=== PATIENT | male | born 1975 | race Caucasian/White ===

== ENCOUNTER 2019-08-19 08:23 | Emergency (ER) | payer MEDICARE, MEDICAID ==
[~2019-08-19] VITALS: Ht 185 cm; Wt 70.0 kg
[2019-08-19] MEDS ORDERED: NS IV 1000 ML 1,000 ML IV STA (08:38)
--- NOTE | 2019-08-19 08:42 | ED General ---
General Stated Complaint: SYNCOPE Source of Information: Patient, Family History of Present Illness Date Seen by Provider: Aug 19, 2019 Time Seen by Provider: 08:23 Initial Comments 43 yo M presenting with complaint of 2 days of having increasing weakness and dizziness. He has had dark black tarry stools and noticed some blood in his mouth. 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 He took an extra dose of his factor VIII injection for the black tarry stool that he had yesterday and brought another dose with them to the ED this am. He has been feeling dizzy and light headed when he stands up. He feels like he has got has had left and is been able to sit down before he passes out. He has been feeling worse in the last 2 days and finally came in today. He feels like he may have a hernia or an area of bleeding in his esophagus or throat because of chronic issues with difficulty swallowing and tasting blood in the back of his mouth. The family member with him and checked his blood pressure and pulse and noted that when he stands he does have heart rate should've when he stands but his blood pressure had been maintaining. He follows up with hematology out of [facility] in [place] and for his HIV he sees a satellite clinic from Dr. Adrian from [place], [place] through [facility]. He is unsure what his hemoglobin runs for him. Allergies and Home Medications Allergies Coded Allergies: No Known Drug Allergies (Unverified , 08/19/19) Patient Home Medication List Home Medication List Reviewed: Yes Review of Systems Review of Systems Constitutional: No chills; dizziness (especially with standing and changing positions); No fever; malaise, weakness (general) EENTM: no symptoms reported Respiratory: no symptoms reported Cardiovascular: no symptoms reported Gastrointestinal: No abdominal pain, No constipation, No diarrhea, No nausea, No vomiting; other (black tarry stool x 1 yesterday) Genitourinary: no symptoms reported Musculoskeletal: no symptoms reported Skin: other (pale) Psychiatric/Neurological: Weakness (general and feels dizzy and like he might pass out when he stands and changes positions) Hematologic/Lymphatic: Easy Bleeding (due to hemophilia), Easy Bruising (due to hemophilia) Immunological/Allergic: HIV/AIDS Past Hghsrwa-Rotyns-Nzuvfu Hx Past Med/Social Hx: Reviewed Nursing Past Med/Soc Hx Patient Social History Recent Foreign Travel: Yes Past Medical History Surgeries: Yes Orthopedic (hand surgery as child) Respiratory: No Cardiac: No Neurological: No HIV/AIDS: Yes Genitourinary: No Gastrointestinal: No Musculoskeletal: No Endocrine: No HEENT: No Cancer: No Psychosocial: No Integumentary: No Blood Disorders: Yes (Hemophilia A) Physical Exam Vital Signs Vital Signs - First Documented 08/19/19 08:45 Temp 36.3 Pulse 110 Resp 20 B/P (MAP) 133/80 (97) Pulse Ox 100 O2 Delivery Room Air Capillary Refill : Height, Weight, BMI Height: '" Weight: lbs. oz. kg; BMI Method: General Appearance: WD/WN, Mild Distress HEENT: PERRL/EOMI, Other (some blood in his mouth) Neck: Full Range of Motion, Non Tender, Supple Respiratory: Chest Non Tender, Lungs Clear, Normal Breath Sounds, No Accessory Muscle Use, No Respiratory Distress Cardiovascular: Normal Peripheral Pulses, Tachycardia Gastrointestinal: Normal Bowel Sounds, No Pulsatile Mass, Non Tender, Soft Extremity: Normal Capillary Refill, Non Tender, No Calf Tenderness, No Pedal Edema Neurologic/Psychiatric: Alert, Oriented x3, No Motor/Sensory Deficits, strategy analyst II- XII Norm as Tested Skin: Warm/Dry, Pallor Progress/Results/Core Measures Suspected Sepsis SIRS Temperature: Pulse: Respiratory Rate: Laboratory Tests 08/19/19 08:32: White Blood Count 5.0 08/19/19 12:20: White Blood Count 4.8 Blood Pressure / Mean: Laboratory Tests 08/19/19 08:32: Creatinine 0.88, INR Comment 1.1, Platelet Count 142, Total Bilirubin 0.2 08/19/19 12:20: Platelet Count 72L Results/Orders Lab Results Laboratory Tests Test 08/19/19 08:32 08/19/19 12:10 08/19/19 12:20 Range/Units White Blood Count 5.0 4.8 4.3-11.0 10^3/uL Red Blood Count 2.08 L 2.16 L 4.35-5.85 10^6/uL Hemoglobin 6.4 *L 6.7 *L 13.3-17.7 G/DL Hematocrit 19 *L 20 *L 40-54 % Mean Corpuscular Volume 91 90 80-99 FL Mean Corpuscular Hemoglobin 31 31 25-34 PG Mean Corpuscular Hemoglobin Concent 34 34 32-36 G/DL Red Cell Distribution Width 15.1 H 14.7 H 10.0-14.5 % Platelet Count 142 72 L 130-400 10^3/uL Mean Platelet Volume 11.0 H 12.1 H 7.4-10.4 FL Neutrophils (%) (Auto) 46 42-75 % Lymphocytes (%) (Auto) 38 12-44 % Monocytes (%) (Auto) 13 H 0-12 % Eosinophils (%) (Auto) 3 0-10 % Basophils (%) (Auto) 0 0-10 % Neutrophils # (Auto) 2.3 1.8-7.8 X 10^3 Lymphocytes # (Auto) 1.9 1.0-4.0 X 10^3 Monocytes # (Auto) 0.6 0.0-1.0 X 10^3 Eosinophils # (Auto) 0.2 0.0-0.3 10^3/uL Basophils # (Auto) 0.0 0.0-0.1 10^3/uL Prothrombin Time 14.4 12.2-14.7 SEC INR Comment 1.1 0.8-1.4 Activated Partial Thromboplast Time 38 H 24-35 SEC Sodium Level 142 135-145 MMOL/L Potassium Level 3.6 3.6-5.0 MMOL/L Chloride Level 109 H 98-107 MMOL/L Carbon Dioxide Level 21 21-32 MMOL/L Anion Gap 12 5-14 MMOL/L Blood Urea Nitrogen 34 H 7-18 MG/DL Creatinine 0.88 0.60-1.30 MG/DL Estimat Glomerular Filtration Rate > 60 BUN/Creatinine Ratio 39 Glucose Level 106 H 70-105 MG/DL Calcium Level 7.8 L 8.5-10.1 MG/DL Corrected Calcium 8.4 L 8.5-10.1 MG/DL Total Bilirubin 0.2 0.1-1.0 MG/DL Aspartate Amino Transf (AST/SGOT) 30 5-34 U/L Alanine Aminotransferase (ALT/SGPT) 48 0-55 U/L Alkaline Phosphatase 29 L 40-136 U/L Total Protein 5.3 L 6.4-8.2 GM/DL Albumin 3.2 3.2-4.5 GM/DL Lipase 36 8-78 U/L Urine Color YELLOW Urine Clarity CLEAR Urine pH 7.0 5-9 Urine Specific [place] 1.015 L 1.016-1.022 Urine Protein NEGATIVE NEGATIVE Urine Glucose (UA) NEGATIVE NEGATIVE Urine Ketones NEGATIVE NEGATIVE Urine Nitrite NEGATIVE NEGATIVE Urine Bilirubin NEGATIVE NEGATIVE Urine Urobilinogen 0.2 < = 1.0 MG/DL Urine Leukocyte Esterase NEGATIVE NEGATIVE Urine RBC (Auto) NEGATIVE NEGATIVE Urine RBC NONE /HPF Urine WBC RARE /HPF Urine Squamous Epithelial Cells RARE /HPF Urine Crystals NONE /LPF Urine Bacteria NEGATIVE /HPF Urine Casts NONE /LPF Urine Mucus NEGATIVE /LPF Urine Culture Indicated NO My Orders Orders - SHANTA ENRIQUEZ MD Comprehensive Metabolic Panel (08/19/19 08:38) Lipase (08/19/19 08:38) Ua Culture If Indicated (08/19/19 08:38) Ed Iv/Invasive Line Start (08/19/19 08:38) Cbc With Automated Diff (08/19/19 08:38) Protime With Inr (08/19/19 08:38) Partial Thromboplastin Time (08/19/19 08:38) Ns Iv 1000 Ml (Sodium Chloride 0.9%) (08/19/19 08:38) Ekg Tracing (08/19/19 08:38) Continuous Ekg Monitoring (08/19/19 08:38) Type And Screen (08/19/19 10:12) Red Cells Leukocytes Reduced (08/19/19 10:12) Blood Trans|Repeat Hgb After U (08/19/19 10:33) Ns Iv 1000 Ml (Sodium Chloride 0.9%) (08/19/19 11:30) Blood Trans|Repeat Hgb After U (08/19/19 12:11) Cbc No Diff (08/19/19 12:56) Red Cells Leukocytes Reduced (08/19/19 10:20) Red Cells Leukocytes Reduced (08/19/19 13:59) Ns (Ivpb) (Sodium C... W/Pantoprazole In (08/19/19 14:01) Red Cells Leukocytes Reduced (08/19/19 14:34) Vital Signs/I&O 08/19/19 08/19/19 08/19/19 08/19/19 08:45 10:27 14:15 14:54 Temp 36.3 36.6 36.2 36.2 36.4 36.5 36.8 Pulse 110 102 90 93 Resp 20 18 B/P (MAP) 133/80 (97) 125/82 Pulse Ox 100 99 O2 Delivery Room Air Capillary Refill : Progress Note #1: Progress Note obtain basic labs and coags, ECG. Given 1 L NS bolus as well as Protonix 40 mg IV for presumed GI bleed based on dark tarry stools and his hemophilia hx. Progress Note #2: Progress Note Labs are back and show that patient is anemic with Hgb down to 6.4. He remains hemodynamically stable currently but will require a transfer to a hospital with a higher level of care that will have access to blood for transfusion as well as hematology and GI since he has hemophilia and black tarry stool. He requests [facility] since that is where his specialists are located. at 928 am I called and left a voice mail for Martina Maurice about trying to transfer the patient. I called back immediately and they tried to transfer me to the DSO and it rang mulitple times then the phone just disconnected. I again called back and they had me hold the line while they tried to page Martina Maurice but she did not answer the page. They then transferred me to the phone for the DSO and at 0940 I left a voice mail for them as well. In the voice messages I left for Martina Maurice and the DSO I told them who I was and where I was calling from and that I had a patient I was trying to emergently transfer from [facility] and the number to call back. Progress Note #3: Time: 10:02 Progress Note D/w Dr. Garcia and she had said she could take the patient to come up to [facility] and she requested to give him a unit of blood since he would have a long trip to get to the hospital. She also said she would see if she could arrange for him to get admitted directly to the medical service. Progress Note #4: Time: 10:14 Progress Note Martina Maurice called back from [facility] and states that she will need the records faxe d up to her and she will go to a utilization review board to see whether they can accept the patient for admit and transfer. I called Dr. aGrcia back to verify that she was not able to accept the patient and she stated that she had turned the patient transfer over to the administration and it was now up to Martina Maurice but she would try to see if she could stress to them the urgency of the need for transfer. all records were faxed to [facility] for Martina Maurice and [facility] to review and awaiting word on if pt is accepted. Progress Note #5: Time: 10:54 Progress Note Updated pt and family about the delay in pt transfer due to waiting on hearing back from administration from [facility] to see if the patient is going to be accepted for transfer. I asked if he would want to consider going to another hospital that might be closer for his care but he states he would want to wait for [facility] since that is where all of his specialty care for his hemophilia is managed. He did not want to have to start over with a new provider and specialist for his care. At this point he remains hemodynamically stable so will continue to monitor and if he is still here when the 1 unit of uncross matched PRBC is done infusing then will repeat a H/H to see where he is sitting for his anemia. 1112 Martina Maurice and the Medicine team from [facility] called back and stated that they had reviewed his case and discussed things with the GI doctors there at [facility]. They felt that with him having a GI bleed, Hemophilia and the acute anemia as well as having [place] Medicaid they felt that it would be best for the patient to go to a closer facility on the [place] side rather than come to [facility]. They asked why he was looking at being transferred to [facility] and I informed them it was because the pt had requested it due to his Hematology care being from there for his Hemophilia. They reported that his last Hematology visit was October 2017 and so they felt that was not as much of a factor for follow up at [facility]. They suggested checking with a closer facility on the [place] side about transfer and if that was not available then to call them back and they would see what they could arrange. I went and updated pt and family of the call back from [facility] and asked where they would like to go on the [place] side. I suggested [facility] or [facility]. They requested [facility] so I went to call them. 1122 I called the transfer line about trying to initiate a transfer to [facility] for the patient. I spoke with AISHA Mejias, at the transfer center and gave her the information on the patient. Progress Note #6: Time: 12:03 Progress Note AISHA Mejias, from transfer center at [facility] called back to state that Dr. Magalie Kim is the accepting provider but that they are tight on beds and until they have discharges they will not have a bed assignment for the patient. They will call as soon as they have a bed assignment for the patient. 1220 a repeat CBC was sent to see what his Hgb was doing now that the unit of blood was finished. the Hgb result came back at 6.7. He still has been maintaining his Heart rate in 90-100 range and blood pressure in 120-130 systolic range. Continue IVF NS at 100 mls/hr 1310 Check with and they still have not been able to assign a bed for the patient 1400 Will give a 2nd unit of uncrossmatched PRBC as unsure when he will be able to be transported to . will also give additional protonix as a drip of protonix 8 mg/hr. 1430 Contacted again and they were able to give a room for the patient so transport could start taking him up to before the weather got any worse. Given a "Ghost bed assignment" and will have a bed for him by the time he arrives at . ECG Initial ECG Impression Date: Aug 19, 2019 Initial ECG Impression Time: 08:52 Initial ECG Rate: 100 Initial ECG Rhythm: S.Tach Initial ECG Comparisson: No Previous ECG Available Comment Sinus tachycardia with heart rate 100 bpm. HI interval 191 ms. QT interval 353 ms QTc interval 456 ms. There is no acute ST elevation. He has no prior tracing available for comparison. Critical Care Note Critical Care Total Time (minutes) 75 Progress 75 minutes of critical care time was spent in direct care of the patient. This was time spent excluding seperately billable procedures. Time was spent in obtaining history from patient and family, ordering tests and reviewing results, ordering interventions and reviewing response, discussion with consultants, discussion with family and patient, documentation of the chart. Patient was at risk of serious harm from potential imminent collapse or failure of cardiovascular system due to GI bleed and his hemophilia with acute anemia. Departure Impression Primary Impression: GI hemorrhage Qualified Codes: K92.1 - Melena Additional Impressions: Anemia Qualified Codes: D62 - Acute posthemorrhagic anemia Hemophilia A Disposition: XFER SHT-TRM HOSP Condition: Critical Transfer Transfer Reason: Exceeds level of care Transfer Progress Notes 1203 AISHA Mejias, from [facility] transfer center called back and stated that Dr. Mgaalie Kim was the accepting physician for Mr. Hawthorne. As soon as they have a bed for the pt they will call back. Transfer Facility: [facility] Method of Transfer: EMS SHANTA ENRIQUEZ MD Aug 19, 2019 08:42
[2019-08-19 09:02] LABS: HEMOGLOBIN 6.4 G/DL (13.3-17.7); MEAN CORPUSCULAR HEMOGLOBIN 31 PG (25-34)
[2019-08-19 09:06] LABS: EOSINOPHILS % (AUTO) 3 % (0-10); HEMATOCRIT 19 % (40-54); LYMPHOCYTES % (AUTO) 38 % (12-44); MEAN CORPUSCULAR HGB CONC 34 G/DL (32-36); MEAN CORPUSCULAR VOLUME 91 FL (80-99); MONOCYTES % (AUTO) 13 % (0-12); PLATELET COUNT 142 10^3/uL (130-400); RED CELL DISTRIBUTION WIDTH 15.1 % (10.0-14.5)
[2019-08-19 09:07] LABS: BASOPHILS % (AUTO) 0 % (0-10); EOSINOPHILS # (AUTO) 0.2 10^3/uL (0.0-0.3); LYMPHOCYTES # (AUTO) 1.9 X 10^3 (1.0-4.0); MONOCYTES # (AUTO) 0.6 X 10^3 (0.0-1.0); NEUTROPHILS # (AUTO) 2.3 X 10^3 (1.8-7.8); NEUTROPHILS % (AUTO) 46 % (42-75)
[2019-08-19 09:16] LABS: INR 1.1 (0.8-1.4); PROTHROMBIN TIME PATIENT 14.4 SEC (12.2-14.7)
[2019-08-19 09:19] LABS: BUN/CREATININE RATIO 39; CARBON DIOXIDE 21 MMOL/L (21-32); CHLORIDE 109 MMOL/L (98-107); CREATININE SERUM 0.88 MG/DL (0.60-1.30); GFR ESTIMATED > 60; GLUCOSE 106 MG/DL (70-105); POTASSIUM 3.6 MMOL/L (3.6-5.0); SODIUM 142 MMOL/L (135-145)
[2019-08-19 09:20] LABS: ALANINE AMINOTRANSFERASE 48 U/L (0-55); ALBUMIN 3.2 GM/DL (3.2-4.5); ALKALINE PHOSPHATASE 29 U/L (40-136); BILIRUBIN,TOTAL 0.2 MG/DL (0.1-1.0); CALCIUM 7.8 MG/DL (8.5-10.1); LIPASE 36 U/L (8-78); TOTAL PROTEIN 5.3 GM/DL (6.4-8.2)
[2019-08-19] MEDS ORDERED: NS IV 1000 ML 1,000 ML IV SCH (11:30)
--- NOTE | 2019-08-19 11:45 | NUR ---
O NEGATIVE BLOOD INFUSED AT THIS TIME. NO REACTION NOTED.
[2019-08-19 12:44] LABS: BILIRUBIN,URINE NEGATIVE (NEGATIVE); CLARITY,URINE CLEAR; COLOR,URINE YELLOW; GLUCOSE, URINE (UA) NEGATIVE (NEGATIVE); KETONES,URINE NEGATIVE (NEGATIVE); NITRITE,URINE NEGATIVE (NEGATIVE); PROTEIN,URINE NEGATIVE (NEGATIVE)
[2019-08-19 12:45] LABS: BACTERIA,URINE NEGATIVE /HPF; LEUKOCYTE ESTERASE ,URINE NEGATIVE (NEGATIVE); SQUAMOUS EPITHELIAL CELL,UR RARE /HPF; WBC,URINE RARE /HPF
[2019-08-19 13:04] LABS: HEMOGLOBIN 6.7 G/DL (13.3-17.7); WHITE BLOOD COUNT 4.8 10^3/uL (4.3-11.0)
[2019-08-19 13:05] LABS: MEAN PLATELET VOLUME 12.1 FL (7.4-10.4); RED CELL DISTRIBUTION WIDTH 14.7 % (10.0-14.5)
[2019-08-19] MEDS ORDERED: PANTOPRAZOLE INJECTION 200 MG in NS (IVPB) 100 ML IV STA (14:01)
[2019-08-19 14:54] VITALS: BP 125/82
== END 2019-08-19 14:55 | disposition short-term general hospital (02) ==
LOC: EDUNIT# 08:23 → ER FS 08:25
DX: K92.2 Gastrointestinal hemorrhage, unspecified (principal); D64.9 Anemia, unspecified; D66 Hereditary factor VIII deficiency; Z21 Asymptomatic human immunodeficiency virus [HIV] infection status
CPT/HCPCS: 36415; 80053; 81000; 83690; 85025; 85027; 85610; 85730; 86850; 86900; 86901; 86920; 93005

== ENCOUNTER 2020-04-10 23:56 | Emergency (ER) | payer MEDICARE, MEDICAID ==
[~2020-04-10] VITALS: Ht 187 cm; Wt 90.4 kg
[2020-04-11] MEDS ORDERED: hydrOXYzine (VISTARIL/ATARAX) 25 MG capsule/tablet PO ONE (00:15)
[2020-04-11] MEDS ORDERED: CEPHALEXIN 250 MG (KEFLEX) CAP PO ONE (00:15)
[2020-04-11] MEDS ORDERED: TRIM/SULFAMETH 160/800 (SEPTRA DS) TAB PO ONE (00:15)
--- NOTE | 2020-04-11 00:22 | ED General ---
General Chief Complaint: Skin/Wound Problems Stated Complaint: MULTI INSECT BITES,POSS INFECTION Nursing Triage Note: Pt complaining of multiple insect bites to bilateral arms. Pt's inner forearms are red and warm to touch Nursing Sepsis Screen: No Definite Risk History of Present Illness Date Seen by Provider: Apr 11, 2020 Time Seen by Provider: 00:16 Initial Comments Patient is a 44-year-old HIV positive nondiabetic male who presents with multiple mosquito and chigger bites to forearms and hands 2 weeks with infected right forearm insect bite/cellulitis with superficial draining abscess. Patient reports generalized malaise and fatigue today. No fever chills nausea vomiting or sweats. Patient has been treating himself with ixbs-dfu-[id number] medications without improvement. No history of staph or MRSA. Patient has not been seen for these symptoms prior to today's ER visit. Timing/Duration: Getting Worse, Other (2 weeks) Severity: Moderate Associated Systoms: Malaise, Weakness Allergies and Home Medications Allergies Coded Allergies: No Known Drug Allergies (Unverified , 08/19/19) Patient Home Medication List Home Medication List Reviewed: Yes Review of Systems Review of Systems Constitutional: see HPI EENTM: see HPI Respiratory: see HPI Cardiovascular: see HPI Gastrointestinal: see HPI Genitourinary: see HPI Musculoskeletal: see HPI Skin: see HPI Psychiatric/Neurological: See HPI Hematologic/Lymphatic: See HPI Immunological/Allergic: see HPI All Other Systems Reviewed Negative Unless Noted: Yes Past Wvtadky-Wbmydx-Vgbhnx Hx Past Med/Social Hx: Reviewed Nursing Past Med/Soc Hx Patient Social History Alcohol Use: Rarely Uses Recreational Drug Use: No Smoking Status: Never a Smoker 2nd Hand Smoke Exposure: No Recent Foreign Travel: No Contact w/Someone Who Travel: No Recent Infectious Disease Expo: No Recent Hopitalizations: No Physical Abuse: No Sexual Abuse: No Seasonal Allergies Seasonal Allergies: No Past Medical History Surgeries: Yes Orthopedic Respiratory: No Cardiac: No Neurological: No HIV/AIDS: Yes Genitourinary: No Gastrointestinal: No Musculoskeletal: No Endocrine: No HEENT: No Cancer: No Psychosocial: No Integumentary: No Blood Disorders: Yes (Hemophilia A) Physical Exam Vital Signs Vital Signs - First Documented 04/11/20 00:02 Temp 36.9 Pulse 102 Resp 16 B/P (MAP) 177/104 (128) Pulse Ox 98 O2 Delivery Room Air Capillary Refill : Less Than 3 Seconds Height, Weight, BMI Height: '" Weight: lbs. oz. kg; 25.00 BMI Method: General Appearance: No Apparent Distress Eyes: Bilateral Eye Normal Inspection, Bilateral Eye PERRL HEENT: PERRL/EOMI Neck: Normal Inspection Respiratory: Lungs Clear, Normal Breath Sounds Extremity: Other (diffuse sporadic the scabbed insect bites over bilateral up per extremities with cellulitis over right medial forearm with superficial soft tissue abscess. No induration, streaking or fluctuance. Arm does not feel tight. No distal weakness loss of sensation or pulses.) Neurologic/Psychiatric: Alert, Oriented x3 Skin: Rash, Other Focused Exam Sepsis Stage: Ruled Out Progress/Results/Core Measures Suspected Sepsis Recent Fever Within 48 Hours: No Infection Criteria Present: Suspected New Infection New/Unexplained Altered Menta: No Sepsis Screen: No Definite Risk SIRS Temperature: Pulse: 102 Respiratory Rate: 16 Blood Pressure 177 /104 Mean: 128 Results/Orders My Orders Orders - BLANCA CASTELLON DO Sulfamethoxazole/Trimet Ds Tab (Bactrim (04/11/20 00:15) Cephalexin Capsule (Keflex Capsule) (04/11/20 00:15) Hydroxyzine Cap/Tab (Vistaril) (04/11/20 00:15) Vital Signs/I&O 04/11/20 00:02 Temp 36.9 Pulse 102 Resp 16 B/P (MAP) 177/104 (128) Pulse Ox 98 O2 Delivery Room Air Capillary Refill : Less Than 3 Seconds Blood Pressure Mean: 128 Departure Communication (Admissions) Patient with multiple nonhealing insect bites with cellulitis and early soft tissue draining abscess right forearm. Patient afebrile. First dose of antibiotics given in the emergency department. Recommend watchful waiting, continue antibiotics, supportive care and close PCP follow-up. Return precautions reviewed. Patient verbalizes understanding and agreement with discharge instructions prior to departure. Impression Primary Impression: Insect bite of multiple sites of right upper arm with local reaction Additional Impressions: Cellulitis of forearm, right Abscess of forearm, right Disposition: 01 HOME, SELF-CARE Condition: Stable Departure-Patient Inst. Decision time for Depature: 00:26 Referrals: SELF,SANDRA SONI (PCP/Family) Primary Care Physician Patient Instructions: Insect Bites and Stings (DC), Cellulitis (Skin Infection), Adult (DC), Methicillin-Resistant Staphylococcus aureus (MRSA) Add. Discharge Instructions: Please apply warm compresses to draining abscess, apply hydrocortisone cream to insect bites and take Atarax for itching. Fill antibiotics in the morning and complete full course. Follow-up with your PCP in 2-3 days for reevaluation. Return to the ED if new or worsening symptoms. All discharge instructions reviewed with patient and/or family. Voiced understanding. Scripts Hydroxyzine HCl (Hydroxyzine HCl) 25 Mg Tablet 25 MG PO Q8H, #30 TAB Prov: BLANCA CASTELLON DO 04/11/20 Sulfamethoxazole/Trimethoprim (Bactrim 400-80 mg Tablet) 1 Each Tablet 1 EACH PO BID, #28 TAB Prov: BLANCA CASTELLON DO 04/11/20 Cephalexin (Keflex) 500 Mg Capsule 500 MG PO TID, #42 CAP Prov: BLANCA CASTELLON DO 04/11/20 BLANCA CASTELLON DO Apr 11, 2020 00:22
[2020-04-11] MEDS ORDERED: CEPH-507 PO (00:26)
[2020-04-11] MEDS ORDERED: SULF1TAB34 PO (00:26)
[2020-04-11] MEDS ORDERED: HYDR-700 PO (00:26)
[2020-04-11 00:34] VITALS: BP 177/104
== END 2020-04-11 00:34 | disposition home or self-care (01) ==
LOC: EDUNIT# 23:56 → ER FS 23:59
DX: S50.861A Insect bite (nonvenomous) of right forearm, initial encounter (principal); L03.113 Cellulitis of right upper limb; L02.413 Cutaneous abscess of right upper limb; Z21 Asymptomatic human immunodeficiency virus [HIV] infection status; W57.XXXA Bitten or stung by nonvenomous insect and other nonvenomous arthropods, initial encounter
CPT/HCPCS: 99283

== ENCOUNTER 2021-12-19 15:25 | Emergency (ER) | payer MEDICARE, MEDICAID ==
[~2021-12-19] VITALS: Ht 187 cm; Wt 79.0 kg
[~2021-12-19 15:25] MED LIST: CEPH-507 PO; HYDR-700 PO; SULF1TAB34 PO
[2021-12-19 15:39] LABS: HEMATOCRIT 35 % (40-54); HEMOGLOBIN 10.5 g/dL (13.3-17.7); MEAN CORPUSCULAR HEMOGLOBIN 21 pg (25-34); MEAN CORPUSCULAR HGB CONC 30 g/dL (32-36); MEAN CORPUSCULAR VOLUME 70 fL (80-99); MEAN PLATELET VOLUME 9.6 fL (9.0-12.2); PLATELET COUNT 282 10^3/uL (130-400); WHITE BLOOD COUNT 8.2 10^3/uL (4.3-11.0)
--- NOTE | 2021-12-19 15:41 | Diagnostic Imaging Report ---
INDICATION: Chest pain status post trauma. COMPARISON: None. FINDINGS: Single frontal view of the chest demonstrates normal heart size and pulmonary vascularity. The lungs are well aerated and clear. No large pleural effusion or pneumothorax is seen. The visualized osseous structures show no acute abnormalities. IMPRESSION: 1. No acute cardiopulmonary process. Dictated by: Dictated on workstation # [id number]
[2021-12-19] MEDS ORDERED: NS 100 ML (IVPB) BAG IV ONE (15:45)
[2021-12-19] MEDS ORDERED: IOHEXOL 350 MG/ML 100 ML (OMNIPAQUE 350) VIAL IV ONE (15:45)
[2021-12-19] MEDS ORDERED: HOLD METFORMIN - RECEIVED CONTRAST 20 ML VIAL IV SCH (15:45)
[2021-12-19] MEDS ORDERED: CATHETER FLUSH 10 ML SYR IV PRN (15:45)
[2021-12-19 15:48] LABS: ALBUMIN 4.3 GM/DL (3.2-4.5); POTASSIUM 3.8 MMOL/L (3.6-5.0)
[2021-12-19 15:49] LABS: CALCIUM 9.6 MG/DL (8.5-10.1)
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
[2021-12-19 15:51] LABS: TOTAL PROTEIN 8.2 GM/DL (6.4-8.2)
[2021-12-19 15:52] LABS: BILIRUBIN,TOTAL 0.6 MG/DL (0.1-1.0)
[2021-12-19 15:53] LABS: INR 1.1 (0.8-1.4); PROTHROMBIN TIME PATIENT 14.2 SEC (12.2-14.7)
[2021-12-19 15:54] LABS: CREATININE SERUM 1.2 MG/DL (0.60-1.30)
[2021-12-19 15:56] LABS: BILIRUBIN,DIRECT 0.2 MG/DL (0.0-0.3); BILIRUBIN,INDIRECT 0.4 MG/DL
[2021-12-19] MEDS ORDERED: [UNRECOGNIZED DRUG - REMARK] IV ONE (16:00)
[2021-12-19] MEDS ORDERED: [UNRECOGNIZED DRUG - REMARK] IV ONE (16:00)
[2021-12-19] MEDS ORDERED: fentaNYL INJ 100 MCG/2 ML AMP IVP STA (16:17)
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
[2021-12-19 16:56] VITALS: BP 144/97
== END 2021-12-19 16:56 | disposition home or self-care (01) ==
LOC: EDUNIT# 15:25 → ER 15:27
DX: S13.4XXA Sprain of ligaments of cervical spine, initial encounter (principal); D66 Hereditary factor VIII deficiency; R07.89 Other chest pain; V87.7XXA Person injured in collision between other specified motor vehicles (traffic), initial encounter
CPT/HCPCS: 36415; 70450; 71045; 71260; 72125; 74177; 80048; 80076; 85027; 85610; 85730; 86850; 86900; 86901; 93041

== ENCOUNTER → 2022-03-24 | Outpatient (CLI) | payer MEDICARE, MEDICAID ==
--- NOTE | 2022-03-24 11:12 | Diagnostic Imaging Report ---
INDICATION: Pulmonary nodule, followup. TECHNIQUE: Multiple contiguous axial images were obtained through the chest without the use of intravenous contrast. Auto Exposure Controls were utilized during the CT exam to meet ALARA standards for radiation dose reduction. COMPARISON: Chest CT of 12/19/2021. FINDINGS: There are no enlarged mediastinal or hilar nodes. The ascending aorta is slightly prominent measuring 4.1 cm, stable compared to the prior study. The aortic arch and descending aorta are normal in caliber. There are no enlarged axillary nodes or chest wall lesions. There is no pleural or pericardial fluid. The visualized portions of the upper abdomen show no acute finding. There is no overt bony abnormality in the chest. Lung parenchymal windows demonstrate a right lower lobe pulmonary nodule measuring 1.1 cm in greatest diameter, seen best on image 91 series 5. This is without change compared to the previous study. There is a small probable area of scarring in the right middle lobe which is unchanged as well. IMPRESSION: No change in the right lower lobe pulmonary nodule measuring 1.1 cm. Continued followup is recommended, consider a 3 to 6 month followup. There is a small area of scarring versus nodule in the right middle lobe which is also unchanged. There is unchanged mild prominence of the ascending aorta measuring 4.1 cm. Dictated by: Dictated on workstation # [id number]
== END ==
LOC: RAD FS 09:47
PROVIDERS: ATTEND Allergy & Immunology
DX: R91.1 Solitary pulmonary nodule (principal)
CPT/HCPCS: 71250

== ENCOUNTER 2022-12-04 15:45 | Emergency (ER) | payer MEDICARE, MEDICAID ==
[~2022-12-04] VITALS: Ht 187 cm; Wt 79.0 kg
--- NOTE | 2022-12-04 16:10 | ED General ---
General Chief Complaint: Neurological Problems Stated Complaint: DIZZINESS | WEAKNESS | FALLS Nursing Triage Note: PT CO OF WEAKNESS LOWER EXT, POOR BALANCE, FALLS THIS AM. PT WAS SEEN AT [facility] TODAY AND SENT TO ED. PT CO OF SOA, DENIES ABD PAIN, PT HAS HX OF HIV AND HEMOPHILIA. PT CO OF HDEZ. Source of Information: Patient Exam Limitations: No Limitations History of Present Illness Date Seen by Provider: Dec 04, 2022 Time Seen by Provider: 16:11 Initial Comments Patient is a 46-year-old male with a history of hemophilia, HIV who presents the ED for multiple complaints. He states he has weakness in both of his legs for at least 2 months. He states he fell twice today due to his legs giving out. States he feels unsteady and poor balance especially today. He has had intermittent shortness of breath and mild cough over the past 2 months. States a few weeks ago he came down with an infection. He states he felt like he had a low-grade fever with flulike symptoms and eventually did improve. 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 He is also report he is having trouble keeping a normal flow of urine. Difficulty getting started with his urination. He has had headache intermittently. Headache today rates 3 out of 10. Denies of any excessive bleeding, bloody stools, hematemesis, rash. Denies of any blood in his urine. He had some lab work drawn few days ago and was recommended come the ER as he had a CD4 count of 0. He also reports he has not been the same since he was diagnosed with COVID a few years ago has had intermittent weakness and fatigue. He is not currently taking any medication for his HIV. He stopped a year ago after suffering a GI bleed. Denies any alcohol use or drug use. Patient denies abdominal pain, chest pain, back pain, distal numbness and tingling, visual changes, ear pain or sore throat or rash, cough,, nausea, vomiting, diarrhea Allergies and Home Medications Allergies Coded Allergies: No Known Drug Allergies (Unverified , 08/19/19) Patient Home Medication List Home Medication List Reviewed: Yes Cephalexin (Keflex) 500 Mg Capsule, 500 MG PO TID Prescribed by: BLANCA CASTELLON on 9/2/20 0026 Hydroxyzine HCl (Hydroxyzine HCl) 25 Mg Tablet, 25 MG PO Q8H Prescribed by: BLANCA CASTELLON on 04/11/2025 Sulfamethoxazole/Trimethoprim (Bactrim 400-80 mg Tablet) 1 Each Tablet, 1 EACH PO BID Prescribed by: BLANCA CASTELLON on 04/11/2025 Review of Systems Review of Systems Constitutional: No chills; malaise, weakness EENTM: No blurred vision, No double vision, No hoarseness, No mouth pain, No mouth swelling Respiratory: No cough; short of breath Gastrointestinal: No abdominal pain, No diarrhea, No nausea, No vomiting Genitourinary: No dysuria, No frequency, No hematuria Musculoskeletal: No back pain, No joint pain, No joint swelling, No muscle pain, No muscle stiffness Skin: No change in color All Other Systems Reviewed Negative Unless Noted: Yes Past Rcusfax-Brymep-Qijpcm Hx Patient Social History Tobacco Use?: No Substance use?: No Alcohol Use?: Yes Alcohol Frequency: Rarely Immunizations Up To Date Influenza Vaccine Up-to-Date: No; Not Current First/Initial COVID19 Vaccinat: moderna Second COVID19 Vaccination Jose: moderna Third COVID19 Vaccination Date: Seasonal Allergies Seasonal Allergies: No Past Medical History Surgery/Hospitalization HX: T AND A, HAND SURG, HEMOPHILIA, HIV, Surgeries: Yes Orthopedic Respiratory: No Cardiac: No Neurological: No HIV/AIDS: Yes Genitourinary: No Gastrointestinal: No Musculoskeletal: No Endocrine: No HEENT: No Cancer: No Psychosocial: No Integumentary: No Blood Disorders: Yes (Hemophilia A) Physical Exam Vital Signs Vital Signs - First Documented 12/04/22 15:55 Pulse 88 Resp 10 B/P (MAP) 145/100 (115) Pulse Ox 100 Capillary Refill : Less Than 3 Seconds Height, Weight, BMI Height: '" Weight: lbs. oz. kg; 22.00 BMI Method: General Appearance: No Apparent Distress, WD/WN Eyes: Bilateral Eye Normal Inspection, Bilateral Eye PERRL, Bilateral Eye EOMI HEENT: PERRL/EOMI, TMs Normal, Normal ENT Inspection, Pharynx Normal Neck: Full Range of Motion, Normal Inspection, Non Tender, Supple Respiratory: Chest Non Tender, Lungs Clear, Normal Breath Sounds, No Accessory Muscle Use, No Respiratory Distress Cardiovascular: Regular Rate, Rhythm, No Edema, No Gallop, No JVD Gastrointestinal: Normal Bowel Sounds, No Organomegaly, No Pulsatile Mass, Non Tender Back: Normal Inspection, No CVA Tenderness, No Vertebral Tenderness Extremity: Normal Capillary Refill, Normal Inspection, Normal Range of Motion, Non Tender Neurologic/Psychiatric: Alert, Oriented x3, No Motor/Sensory Deficits, Normal 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, 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 Norm as Tested Skin: Normal Color, Warm/Dry Progress/Results/Core Measures Suspected Sepsis SIRS Temperature: Pulse: 88 Respiratory Rate: 10 Laboratory Tests 12/04/22 16:10: White Blood Count 5.6 Blood Pressure 145 /100 Mean: 115 Laboratory Tests 12/04/22 16:10: Creatinine 1.06, INR Comment 1.0, Platelet Count 186, Total Bilirubin 0.4 Results/Orders Lab Results Laboratory Tests Test 12/04/22 16:10 12/04/22 17:15 Range/Units White Blood Count 5.6 4.3-11.0 10^3/uL Red Blood Count 4.58 4.30-5.52 10^6/uL Hemoglobin 9.5 L 13.3-17.7 g/dL Hematocrit 32 L 40-54 % Mean Corpuscular Volume 70 L 80-99 fL Mean Corpuscular Hemoglobin 21 L 25-34 pg Mean Corpuscular Hemoglobin Concent 30 L 32-36 g/dL Red Cell Distribution Width 18.4 H 10.0-14.5 % Platelet Count 186 130-400 10^3/uL Mean Platelet Volume 10.3 9.0-12.2 fL Immature Granulocyte % (Auto) 0 % Neutrophils (%) (Auto) 70 42-75 % Lymphocytes (%) (Auto) 18 12-44 % Monocytes (%) (Auto) 10 0-12 % Eosinophils (%) (Auto) 2 0-10 % Basophils (%) (Auto) 0 0-10 % Neutrophils # (Auto) 3.9 1.8-7.8 10^3/uL Lymphocytes # (Auto) 1.0 1.0-4.0 10^3/uL Monocytes # (Auto) 0.6 0.0-1.0 10^3/uL Eosinophils # (Auto) 0.1 0.0-0.3 10^3/uL Basophils # (Auto) 0.0 0.0-0.1 10^3/uL Immature Granulocyte # (Auto) 0.0 0.0-0.1 10^3/uL Erythrocyte Sedimentation Rate 12 0-15 MM/HR Prothrombin Time 14.1 12.2-14.7 SEC INR Comment 1.0 0.8-1.4 Activated Partial Thromboplast Time 53 H 24-35 SEC Sodium Level 140 135-145 MMOL/L Potassium Level 3.4 L 3.6-5.0 MMOL/L Chloride Level 108 H 98-107 MMOL/L Carbon Dioxide Level 24 21-32 MMOL/L Anion Gap 8 5-14 MMOL/L Blood Urea Nitrogen 9 7-18 MG/DL Creatinine 1.06 0.60-1.30 MG/DL Estimat Glomerular Filtration Rate 89 BUN/Creatinine Ratio 8 Glucose Level 119 H 70-105 MG/DL Calcium Level 9.7 8.5-10.1 MG/DL Corrected Calcium 9.5 8.5-10.1 MG/DL Magnesium Level 2.0 1.6-2.4 MG/DL Total Bilirubin 0.4 0.1-1.0 MG/DL Aspartate Amino Transf (AST/SGOT) 21 5-34 U/L Alanine Aminotransferase (ALT/SGPT) 29 0-55 U/L Alkaline Phosphatase 44 40-136 U/L Troponin I < 0.028 <0.028 NG/ML C-Reactive Protein High Sensitivity 0.64 H 0.00-0.50 MG/DL B-Type Natriuretic Peptide 19.3 <100.0 PG/ML Total Protein 7.7 6.4-8.2 GM/DL Albumin 4.2 3.2-4.5 GM/DL Urine Color YELLOW Urine Clarity CLEAR Urine pH 7.0 5-9 Urine Specific [place] <=1.005 1.016-1.022 Urine Protein NEGATIVE NEGATIVE Urine Glucose (UA) NEGATIVE NEGATIVE Urine Ketones NEGATIVE NEGATIVE Urine Nitrite NEGATIVE NEGATIVE Urine Bilirubin NEGATIVE NEGATIVE Urine Urobilinogen 0.2 < = 1.0 MG/DL Urine Leukocyte Esterase NEGATIVE NEGATIVE Urine RBC (Auto) NEGATIVE NEGATIVE Urine RBC NONE /HPF Urine WBC RARE /HPF Urine Squamous Epithelial Cells NONE /HPF Urine Crystals NONE /LPF Urine Bacteria TRACE /HPF Urine Casts NONE /LPF Urine Mucus NEGATIVE /LPF Urine Culture Indicated NO My Orders Orders - NAVNEET REYES Ct Head Wo (12/04/22 16:06) Cbc With Automated Diff (12/04/22 16:06) Comprehensive Metabolic Panel (12/04/22 16:06) Erythrocyte Sedimentation Rate (12/04/22 16:06) Hs C Reactive Protein (12/04/22 16:06) Ekg Tracing (12/04/22 16:06) Troponin I [place] (12/04/22 16:06) Bnp [place] (12/04/22 16:06) Ua Culture If Indicated (12/04/22 16:06) Chest 1 View, Ap/Pa Only (12/04/22 16:06) Magnesium (12/04/22 16:06) T [place] Cd4 Cells (12/04/22 16:06) Partial Thromboplastin Time (12/04/22 16:10) Protime With Inr (12/04/22 16:10) Vital Signs/I&O 12/04/22 12/04/22 15:55 19:07 Pulse 88 74 Resp 10 16 B/P (MAP) 145/100 (115) 139/103 Pulse Ox 100 99 Capillary Refill : Less Than 3 Seconds Blood Pressure Mean: 115 ECG Comment Sinus rhythm with first-degree AV block,'s incomplete right bundle branch block, 77 bpm, QRS duration 100 MS, QTc 395 MS Departure Communication (PCP) Patient was sent to the ER from Dr. Mcguire concerning for opportunistic infection with neurological changes. Patient states he has had bilateral leg weakness over the past 2 months worse today with 2 falls. Denies hitting his head or loss of consciousness. Unsteady gait today. He states over the past fe w months he is having difficulty with his schoolwork, reading, doing math. Stopped his HIV medication after a GI bleed that he suffered around a year ago. He does see a infectious disease specialist at [place] last seen was 2 to 3 years ago. Patient was seen by his primary care physician last week and was seen by Dr. Mcguire today who sent patient to the ER for further work-up c oncerning for opportunistic infection. Patient had a CD4 count of 0. This lab work was performed outpatient. I Was not able to locate these results. Patient appears in no acute distress. He is afebrile with stable vital signs. Does report associated shortness of breath with a mild cough. He states he was sick around a week ago but those symptoms have improved. He is afebrile. Concerning for potential opportunistic infection, bacterial, viral, fungi. No evidence of rash. No oral lesions. Denies of any visual changes. Due to the cough and shortness of breath- chest x-ray, cardiac work-up. Patient also reports difficulty keeping a urine stream. Denies of any pain with urination. Urinalysis was ordered. Urinalysis was unremarkable. no abdominal pain or current chest pain. He has no mid to lower midline back pain. No meningeal signs. Neuro exam unremarkable. Due to neurological deficits CT scan of the head was ordered. CT scan was negative. Chest x-ray was negative for pneumonia but did note cardiomegaly. Cardiac work-up was unremarkable. CD4 count was ordered. Normal white blood count. Hemoglobin in the 9. Chemistry otherwise unremarkable. Urinalysis was negative for infection. Patient was discussed with hospitalist for [facility] Dr. Panda. She did not feel comfortable accepting patient since we do not have neurology or infectious disease. Patient was discussed with [facility] as well as [facility] but at capacity. Patient was discussed with bed placement at [facility]. They contacted Dr. Cheng hospitalist who consulted with her heme-onc specialist who felt like patient needs to go to a tertiary center secondary to his history of hemophilia. He denies of any active bleeding at this time. He is not on blood thinners. Patient has been seen at [facility] in the past. Contacted the transfer center at [facility] who consulted with Dr. Briones who accepted patient for transfer. Due to not having infectious disease and neurology at this facility. patient would benefit at a facility who could manage patient and provide appropriate course of action. Patient will likely need an MRI of his head and a lumbar puncture. [facility] agreed to accept patient. They recommended no further work-up here at this time and to transfer to their facility. Due to no current EMS transportation. Family at bedside agreed to transfer patient by POV. I do think this is reasonable. Patient is currently stable. I do think helicopter transfer would be a waste of resources Impression Primary Impression: HIV (human immunodeficiency virus infection) Additional Impressions: Bilateral leg weakness Unsteady gait Disposition: 02 XFER SHT-TRM HOSP Condition: Stable Transfer Transfer Reason: Exceeds level of care Time Spoke to Accepting Phy: 18:10 Transfer Progress Notes Accepted at [facility] By Dr. Briones Transfer Time: 19:00 Transfer Facility: [facility] Method of Transfer: Private Vehicle Departure-Patient Inst. Referrals: SELF,SANDRA SONI (PCP/Family) Primary Care Physician NAVNEET REYES Dec 04, 2022 16:10
[2022-12-04 16:20] LABS: BASOPHILS % (AUTO) 0 % (0-10); EOSINOPHILS # (AUTO) 0.1 10^3/uL (0.0-0.3); EOSINOPHILS % (AUTO) 2 % (0-10); HEMATOCRIT 32 % (40-54); HEMOGLOBIN 9.5 g/dL (13.3-17.7); LYMPHOCYTES % (AUTO) 18 % (12-44); MEAN CORPUSCULAR HEMOGLOBIN 21 pg (25-34); MEAN CORPUSCULAR HGB CONC 30 g/dL (32-36); MEAN CORPUSCULAR VOLUME 70 fL (80-99); MEAN PLATELET VOLUME 10.3 fL (9.0-12.2); MONOCYTES # (AUTO) 0.6 10^3/uL (0.0-1.0); MONOCYTES % (AUTO) 10 % (0-12); NEUTROPHILS # (AUTO) 3.9 10^3/uL (1.8-7.8); NEUTROPHILS % (AUTO) 70 % (42-75); PLATELET COUNT 186 10^3/uL (130-400); WHITE BLOOD COUNT 5.6 10^3/uL (4.3-11.0)
--- NOTE | 2022-12-04 16:31 | Diagnostic Imaging Report ---
INDICATION: Shortness of breath. TECHNIQUE: Frontal chest obtained at 04:26 p.m. and compared with 12/19/2021. FINDINGS: There is cardiomegaly. There is no focal infiltrate or pneumothorax or pleural fluid. IMPRESSION: Cardiomegaly with no acute process in the chest. Dictated by: Dictated on workstation # [id number]
[2022-12-04 16:38] LABS: PROTHROMBIN TIME PATIENT 14.1 SEC (12.2-14.7)
--- NOTE | 2022-12-04 16:39 | Diagnostic Imaging Report ---
PROCEDURE: CT head without contrast. TECHNIQUE: Multiple contiguous axial images were obtained through the brain without the use of intravenous contrast. Auto Exposure Controls were utilized during the CT exam to meet ALARA standards for radiation dose reduction. INDICATION: Leg weakness. Headache. Trauma. Fall. COMPARISON: CT head without contrast 12/19/2021. FINDINGS: No intracranial hemorrhage, mass effect, hydrocephalus or extra-axial fluid collection. No CT evidence of a territorial infarction. Osseous structures are intact. Paranasal sinuses and mastoids are clear. IMPRESSION: No acute intracranial CT finding. Dictated by: Dictated on workstation # [id number]
[2022-12-04 16:41] LABS: ALBUMIN 4.2 GM/DL (3.2-4.5); CHLORIDE 108 MMOL/L (98-107); POTASSIUM 3.4 MMOL/L (3.6-5.0); SODIUM 140 MMOL/L (135-145)
[2022-12-04 16:42] LABS: CALCIUM 9.7 MG/DL (8.5-10.1)
[2022-12-04 16:44] LABS: GLUCOSE 119 MG/DL (70-105); TOTAL PROTEIN 7.7 GM/DL (6.4-8.2)
[2022-12-04 16:45] LABS: BILIRUBIN,TOTAL 0.4 MG/DL (0.1-1.0); CARBON DIOXIDE 24 MMOL/L (21-32)
[2022-12-04 16:47] LABS: ALKALINE PHOSPHATASE 44 U/L (40-136); CREATININE SERUM 1.06 MG/DL (0.60-1.30); GFR ESTIMATED 89
[2022-12-04 16:48] LABS: BUN/CREATININE RATIO 8
[2022-12-04 16:50] LABS: ALANINE AMINOTRANSFERASE 29 U/L (0-55)
[2022-12-04 17:01] LABS: ERYTHROCYTE SEDIMENTATION RATE 12 MM/HR (0-15)
[2022-12-04 17:21] LABS: BILIRUBIN,URINE NEGATIVE (NEGATIVE); CLARITY,URINE CLEAR; COLOR,URINE YELLOW; GLUCOSE, URINE (UA) NEGATIVE (NEGATIVE); KETONES,URINE NEGATIVE (NEGATIVE); LEUKOCYTE ESTERASE ,URINE NEGATIVE (NEGATIVE); NITRITE,URINE NEGATIVE (NEGATIVE); PROTEIN,URINE NEGATIVE (NEGATIVE)
[2022-12-04 18:16] LABS: BACTERIA,URINE TRACE /HPF; WBC,URINE RARE /HPF
[2022-12-04 19:07] VITALS: BP 139/103
== END 2022-12-04 19:29 | disposition short-term general hospital (02) ==
LOC: EDUNIT# 15:45 → ER 15:47
DX: B20 Human immunodeficiency virus [HIV] disease (principal); R53.1 Weakness; R26.81 Unsteadiness on feet; I51.7 Cardiomegaly; R05.9 Cough, unspecified; Z86.16 Personal history of COVID-19; W18.30XA Fall on same level, unspecified, initial encounter
CPT/HCPCS: 36415; 70450; 71045; 80053; 81000; 83735; 83880; 84484; 85025; 85610; 85652; 85730; 86141; 86361; 93005